=== PATIENT | male | born 1980 | race Two or more races ===

== ENCOUNTER 2019-03-19 20:58 | Emergency (ER) | payer OTHER, SELFPAY ==
[2019-03-19 20:59] VITALS: BP 136/79; PULSE 90; RESP 18; TEMP 36.7; O2SAT 98; BMI 28.3
--- NOTE | 2019-03-19 21:35 | ED.DCSUM_ITS ---
- ER Visit Summary Date of Service: 03/19/19 Chief Complaint: Laceration to left index finger History of Present Illness: The patient is a 38 M who presents with a laceration to his left index finger that occurred today. Patient was trimming his [place] tree when he accidentally cut himself with a knife. Patient states the bleeding stopped it for several minutes of pressure. Patient denies any paresthesias or weakness. Patient states his last tetanus was approximately 8 years ago. Patient denies any other injuries. Physical Examination: Vital signs are stable. Patient is afebrile. Patient is in no acute distress. Skin is warm and dry. There is a 2 cm full-thickness l inear laceration on the radial aspect of the right index finger over the proximal phalanx and MP joint. There is moderate gapping of the wound margins. There are no foreign bodies noted. There is no active bleeding. There is full range of motion of the left index finger. Strength is 5/5 in flexion and extension of the MP, PIP, and DIP joints. There are no sensory deficits noted. Capillary refill is less than 2 seconds in all digits. Emergency Department Course and Treatment: The wound was cleaned and irrigated with copious amounts normal saline. The wound was anesthetized with 2% plain lidocaine locally. The wound was closed with 3 simple interrupted #4-0 nylon sutures under sterile technique. Bacitracin dressing was applied. Patient to lerated procedure well. Patient was instructed to follow-up with his primary care physician in 5 to 7 days for wound recheck and suture removal. Patient understood and was agreeable with the plan. All questions were answered. Disposition: Discharge home Impression: Left index finger laceration This note was generated with [employer] dictation software. It may contain incorrect words, spelling, and punctuation that were not noted in review of the chart prior to signing ED Disposition - Plan for ED Patient: Disposition: Home or Assisted Living Diagnosis: Laceration of left index finger w/o foreign body w/o damage to nail Instructions: LACERATION, Hand Referrals: Giorgio Villanueva MD [Primary Care Provider] - 7 Days for suture removal
[2019-03-19] MEDS: BACITRACIN 15 GM Tube 1 APPLIC TOPICAL (21:52)
== END 2019-03-19 21:59 | disposition home or self-care (01) ==
LOC: ED 21:45
PROVIDERS: Emergency Provider Emergency Medicine; Family Provider Family Medicine; PCP Family Medicine
DX: S61.211A Laceration without foreign body of left index finger without damage to nail, initial encounter (principal); W26.0XXA Contact with knife, initial encounter; Y93.89 Activity, other specified
CPT/HCPCS: 12001; 99283; A4216

== ENCOUNTER 2023-06-11 12:58 | Emergency (ER) | payer OTHER, SELFPAY ==
[2023-06-11 12:59] VITALS: BP 141/97; PULSE 80; RESP 16; TEMP 36.4; O2SAT 99; BMI 29.8
--- NOTE | 2023-06-11 15:08 | EDS_ITS ---
HPI History of Present Illness Chief Complaint: Edema Narrative Narrative: 42-year-old male presents with left jaw pain and swelling after eating. His symptoms started around 1130, almost 4 hours ago. He was not eating anything unusual, just a turkey burger which she is consuming previously. He denies any fever or other symptoms with this. He noticed large amount of swelling on the left side of his fac in the area of his left parotid. Since then, his swelling has improved. He went to urgent care, and described to them that he had mild jaw pain and perhaps slight headache since the swelling has gone down, so they sent him for evaluation. He presents mainly for screening examination as he states that the left jaw swelling has improved considerably. PFSH [facility] Home Medications NK 03/19/19 [History Last Taken Unknown] Allergy/AdvReac Type Severity Reaction Status Date / Time No Known Allergies Allergy Verified 03/19/19 21:00 Social History Smoking Status: Never smoker ROS ROS ED ROS Narrative Constitutional: No fever, no chills. HEENT: No sore throat. No neck pain. No loss of vision. No rhinorrhea. Left jaw swelling around left parotid gland. No erythema. No difficulty swallowing. Cardiovascular: No chest pain. No palpitations. No pedal edema. Respiratory: No cough, no shortness of breath. Abdominal: No abdominal pain. No nausea. No vomiting. Genitourinary: No dysuria. No hematuria. Musculoskeletal: No myalgias. No arthralgias. Neurologic: No headaches. No dizziness. No lightheadedness. Skin: No rash. No change in color. Psychiatric: No depression. No anxiety. EXAM Physical Exam Narrative Exam Narrative: Afebrile. Vital signs noted. HEENT: Normocephalic. Atraumatic. PERRL, EOMI. Neck soft and supple. No point tenderness or step off. No drooling. No trismus. Airway patent. No Geovany angina. No erythema over parotid. No overt swelling. No TMJ symptoms. Cardiovascular: Regular rate and rhythm. No murmurs, rubs, or gallops appreciated. Respiratory: No tachypnea. Lungs clear to auscultation bilaterally. Gastrointestinal: Abdomen soft, nontender, with normoactive bowel sounds. No rebound or guarding. Neurological: Awake. Alert. Nonfocal, nonlateralizing. Skin: No rash. Normal color. No pallor. Musculoskeletal: No pedal edema. Full range of motion extremities. Const Vital Signs: 06/11/23 12:59 Temperature 97.6 F L Temperature Source Temporal Pulse Rate 80 Respiratory Rate 16 Blood Pressure 141/97 H Blood Pressure Mean 111 Pulse Ox 99 Oxygen Delivery Method Room Air MDM MDM MDM Narrative Medical decision making narrative: In the differential diagnosis is parotid gland blockage versus abscess versus TMJ. I have low suspicion for TIA or cardiac pain as he had localized swelling in the area which is improved. I feel his medical screening examination is unremarkable and that he does not require any laboratory work or imaging. This was discussed with the patient as well, and through shared decision making I feel he can be discharged to follow-up with his primary care provider. His symptoms have almost resolved. He was told that he could have stenosis of a salivary gland duct, and that he should try sour candies. Return instructions to the emergency department were reviewed. Disposition is discharged home in stable condition. Patient comfortable with the plan. Discharge Plan Triage Chief Complaint: Edema ED Provider: Abhijeet Germain Dx/Rx/DC Orders Clinical Impression: Swelling of left parotid gland, Encounter for medical screening examination Instructions: ED Screening Exam Medical Nonurgent, ED Salivary Gland Swelling UKO Prescriptions: No Action NK Primary Care Provider: Giorgio Villanueva Referrals: Giorgio Villanueva MD [Primary Care Provider] - 3-5 Days if not improving Activity Restrictions/Additional Instructions: Consume sour candies like lemonheads. Return with fever, increased swelling, new or worsening symptoms. Disposition Disposition: Home, Self Care
[2023-06-11 15:16] VITALS: BP 141/79; PULSE 80; RESP 16; TEMP 36.4; O2SAT 99
== END 2023-06-11 15:17 | disposition home or self-care (01) ==
LOC: ED 15:15
PROVIDERS: Emergency Provider Emergency Medicine; PCP Family Medicine; Visit Provider Emergency Medicine
DX: R60.9 Edema, unspecified (principal)
CPT/HCPCS: 99282

== ENCOUNTER → 2024-12-27 | Outpatient (CLI) | payer OTHER, SELFPAY ==
--- NOTE | 2024-12-27 12:42 | RAD_ITS ---
PROCEDURE: HAND MIN 3 VIEWS 12/27/2024 REASON FOR EXAM: RIGHT HAND PAIN TECHNIQUE: Procedure Code: AMITA Modality: DX Procedure: HAND MIN 3 VIEWS Laterality: Right COMPARISON: None. RAD/Hand Min 3 Views IMPRESSION: Mild degenerative changes are seen fingers in the 1st metacarpophalangeal joint . [id number] degenerative changes are seen of the 1st carpal-metacarpal joint . No radiopaque foreign body is seen. No fracture or dislocation is evident. If clinical concern persists, short-ter m follow-up imaging may be obtained to rule out a currently occult fracture. Reading Location: [place] [id number]
== END | disposition home or self-care (01) ==
PROVIDERS: PCP Family Medicine; Referring Provider Physician Assistant; Visit Provider Physician Assistant
DX: S69.91XA Unspecified injury of right wrist, hand and finger(s), initial encounter (principal); X58.XXXA Exposure to other specified factors, initial encounter
CPT/HCPCS: 73130